=== PATIENT | female | born 1955 | race Caucasian/White ===

== ENCOUNTER 2017-11-13 13:51 | Emergency (ER) | payer BC ==
[2017-11-13 14:00] VITALS: BP 120/65; PULSE 88; RESP 16; TEMP 98.4; O2SAT 100
[2017-11-13] MEDS ORDERED: LEVO25TA4 PO (14:31)
[2017-11-13] MEDS ORDERED: CALC12502 (14:31)
[2017-11-13] MEDS ORDERED: RANI150C PO (14:31)
[2017-11-13] MEDS ORDERED: ERGO2000 PO (14:31)
[2017-11-13 14:32] VITALS: BP_SYST 101; BP_SYST 106; BP_SYST 94; BP_DIAS 48; BP_DIAS 50; BP_DIAS 59; RESP 16; O2SAT 100
[2017-11-13] MEDS ORDERED: SODIUM CHLOR 0.9% 1000 ML INJ 1,000 ML IV ONE (14:32)
--- NOTE | 2017-11-13 14:38 | PD ---
HPI Chief Complaint: Dizziness Time Seen by Provider: 14:26 Travel History International Travel<30 days: No Contact w/Intl Traveler<30days: No Traveled to known affect area: No History of Present Illness HPI Patient presents with concerns of left facial numbness. States she was out eating lunch when she was sitting and experienced some dizziness with an associated headache and left facial numbness. Denies any slurred speech denies any facial asymmetry. Denies any extremity weakness. Denies any cranial deficits. The dizziness is been occurring for several months. She is being worked up by her PCP for near syncope however today the headache and left facial numbness was different. Denies that this is the worst headache she's ever had. CT brain that was done one to 2 weeks ago was normal. PFSH Past Medical History Cerebrovascular Accident: Yes ?: Not Social History Tobacco Use: No Allergies-Medications (Allergen,Severity, Reaction): Coded Allergies: Penicillins (Verified Allergy, Unknown, 11/13/17) Sulfa (Sulfonamide Antibiotics) (Verified Allergy, Unknown, 11/13/17) naproxen (Verified Allergy, Unknown, 11/13/17) Reported Meds & Prescriptions Reported Meds & Active Scripts Active Reported Vitamin D2 (Ergocalciferol) 2,000 Unit Tab Unknown Dose PO DAILY Ranitidine (Ranitidine HCl) 150 Mg Cap Unknown Dose PO BID Calcium (Oyster Shell) 500 Mg Calcium (1250 Mg) Tab Levothyroxine (Levothyroxine Sodium) 25 Mcg Tab Unknown Dose PO DAILY Review of Systems General / Constitutional: No: Fever Eyes: No: Visual changes HENT: Positive: Headaches Cardiovascular: No: Chest Pain or Discomfort Respiratory: No: Shortness of Breath Gastrointestinal: No: Abdominal Pain Genitourinary: No: Dysuria Musculoskeletal: No: Pain Skin: No Rash Neurologic: Positive: Dizziness, No: Weakness Psychiatric: No: Depression Endocrine: No: Polydipsia Hematologic/Lymphatic: No: Easy Bruising Physical Exam Narrative GENERAL: Well-nourished, well-developed patient. SKIN: Focused skin assessment warm/dry. HEAD: Normocephalic. EYES: No scleral icterus. No injection or drainage. NECK: Supple, trachea midline. No JVD or lymphadenopathy. CARDIOVASCULAR: Regular rate and rhythm without murmurs, gallops, or rubs. RESPIRATORY: Breath sounds equal bilaterally. No accessory muscle use. GASTROINTESTINAL: Abdomen soft, non-tender, nondistended. MUSCULOSKELETAL: No cyanosis, or edema. BACK: Nontender without obvious deformity. No CVA tenderness. Data Data Last Documented VS Vital Signs Date Time Temp Pulse Resp B/P (MAP) Pulse Ox O2 Delivery O2 Flow Rate FiO2 11/13/17 15:40 72 18 103/52 (69) 99 Room Air 11/13/17 14:00 98.4 Orders Orders Complete Blood Count With Diff (11/13/17 14:32) Comprehensive Metabolic Panel (11/13/17 14:32) Ckmb (Isoenzyme) Profile (11/13/17 14:32) Troponin I (11/13/17 14:32) Urinalysis - C+S If Indicated (11/13/17 14:32) Ecg Monitoring (11/13/17 14:32) Iv Access Insert/Monitor (11/13/17 14:32) Oximetry (11/13/17 14:32) Sodium Chloride 0.9% Flush (Ns Flush) (11/13/17 14:45) Sodium Chlor 0.9% 1000 Ml Inj (Ns 1000 M (11/13/17 14:32) Orthostatic Vital Signs (11/13/17 14:32) Electrocardiogram (11/13/17 ) CKMB (11/13/17 14:40) CKMB% (11/13/17 14:40) Labs Laboratory Tests Test 11/13/17 14:40 White Blood Count 6.5 TH/MM3 Red Blood Count 4.30 MIL/MM3 Hemoglobin 13.1 GM/DL Hematocrit 39.3 % Mean Corpuscular Volume 91.5 FL Mean Corpuscular Hemoglobin 30.5 PG Mean Corpuscular Hemoglobin Concent 33.3 % Red Cell Distribution Width 13.3 % Platelet Count 205 TH/MM3 Mean Platelet Volume 10.5 FL Neutrophils (%) (Auto) 55.7 % Lymphocytes (%) (Auto) 33.3 % Monocytes (%) (Auto) 8.2 % Eosinophils (%) (Auto) 2.3 % Basophils (%) (Auto) 0.5 % Neutrophils # (Auto) 3.7 TH/MM3 Lymphocytes # (Auto) 2.2 TH/MM3 Monocytes # (Auto) 0.5 TH/MM3 Eosinophils # (Auto) 0.1 TH/MM3 Basophils # (Auto) 0.0 TH/MM3 CBC Comment DIFF FINAL Differential Comment Urine Collection Type CLEAN CATCH Urine Color YELLOW Urine Turbidity CLEAR Urine pH 5.0 Urine Specific [place] 1.019 Urine Protein NEG mg/dL Urine Glucose (UA) NEG mg/dL Urine Ketones NEG mg/dL Urine Occult Blood TRACE Urine Nitrite NEG Urine Bilirubin NEG Urine Leukocyte Esterase NEG Urine RBC 0-3 /hpf Urine WBC 0-2 /hpf Urine Squamous Epithelial Cells 0-5 /hpf Microscopic Urinalysis Comment CULT NOT INDICATED Urine Collection Time 14:40 Blood Urea Nitrogen 14 MG/DL Creatinine 0.89 MG/DL Random Glucose 86 MG/DL Total Protein 7.8 GM/DL Albumin 4.0 GM/DL Calcium Level 8.8 MG/DL Alkaline Phosphatase 101 U/L Aspartate Amino Transf (AST/SGOT) 20 U/L Alanine Aminotransferase (ALT/SGPT) 20 U/L Total Bilirubin 0.3 MG/DL Sodium Level 139 MEQ/L Potassium Level 3.6 MEQ/L Chloride Level 106 MEQ/L Carbon Dioxide Level 26.3 MEQ/L Anion Gap 7 MEQ/L Estimat Glomerular Filtration Rate 64 ML/MIN Total Creatine Kinase 127 U/L Creatine Kinase MB 0.7 NG/ML Troponin I LESS THAN 0.02 NG/ML MDM Medical Decision Making Medical Screen Exam Complete: Yes Emergency Medical Condition: Yes Differential Diagnosis ACS, trigeminal neuralgia, dentalgia, near syncope Narrative Course Assessment and plan discussed with patient, and daughter at bedside. EKG reveals sinus rhythm rate of 70. Patient received fluids with improvement. Headache has improved. Labs reviewed and within normal limits. Cardiac enzymes negative. Diagnosis Primary Impression: Cephalgia Qualified Codes: R51 - Headache Patient Instructions: General Instructions Additional Instructions: Encouraged rest fluids and Motrin or Tylenol. Follow-up with PCP. Return to emergency room with any onset of new symptoms. Med/Other Pt SpecificInfo: No Meds Exist/No RX given Disposition: 01 DISCHARGE HOME Condition: Good Saturnino Regan MD Nov 13, 2017 14:38
[2017-11-13] MEDS ORDERED: SODIUM CHLORIDE 0.9% FLUSH 10 ML FLUSH IVF PRN (14:45)
[2017-11-13 14:54] LABS: AUTOMATED NEUTROPHIL # 3.7 TH/MM3 (1.8-7.7); BASOPHIL % 0.5 % (0.0-2.0); EOSINOPHIL # 0.1 TH/MM3 (0-0.4); EOSINOPHIL % 2.3 % (0.0-4.0); HEMATOCRIT 39.3 % (35.0-46.0); HEMOGLOBIN 13.1 GM/DL (11.6-15.3); LYMPH % 33.3 % (9.0-44.0); LYMPHOCYTE # 2.2 TH/MM3 (1.0-4.8); MEAN CELL VOLUME 91.5 FL (80.0-100.0); MEAN CORPUSCULAR HEMOGLOBIN 30.5 PG (27.0-34.0); MEAN CORPUSCULAR HGB CONC 33.3 % (32.0-36.0); MEAN PLATELET VOLUME 10.5 FL (7.0-11.0); MONO % 8.2 % (0.0-8.0); MONOCYTE # 0.5 TH/MM3 (0-0.9); NEUT % 55.7 % (16.0-70.0); PLATELET COUNT 205 TH/MM3 (150-450); RED CELL DISTRIBUTION WIDTH 13.3 % (11.6-17.2); WHITE BLOOD COUNT 6.5 TH/MM3 (4.0-11.0)
[2017-11-13 14:56] LABS: BILIRUBIN, URINE NEG (NEG); BLOOD, URINE TRACE (NEG); GLUCOSE,URINE NEG (NEG); KETONE, URINE NEG (NEG); NITRITE,URINE NEG (NEG); URINE LEUKOCYTE ESTERASE NEG (NEG)
[2017-11-13 15:12] LABS: CHLORIDE 106 MEQ/L (98-107); SODIUM (NA) 139 MEQ/L (136-145)
[2017-11-13 15:13] LABS: RBC, URINE 0-3 /hpf (0-3); SQUAMOUS EPITHELIAL CELL URINE 0-5 /hpf (0-5); URINE COLOR YELLOW (YELLW/STRAW); WBC, URINE 0-2 /hpf (0-5)
[2017-11-13 15:15] LABS: CALCIUM 8.8 MG/DL (8.5-10.1)
[2017-11-13 15:16] LABS: BICARBONATE 26.3 MEQ/L (21.0-32.0); BLOOD UREA NITROGEN 14 MG/DL (7-18); GLUCOSE,RANDOM 86 MG/DL (74-106)
[2017-11-13 15:19] LABS: ALT (GPT) 20 U/L (10-53); AST (GOT) 20 U/L (15-37); CREATININE 0.89 MG/DL (0.50-1.00); GLOMERULAR FILTRATION RATE 64 ML/MIN (>89)
[2017-11-13 15:21] LABS: TOTAL BILIRUBIN ADULT 0.3 MG/DL (0.2-1.0); TOTAL PROTEIN 7.8 GM/DL (6.4-8.2)
[2017-11-13 15:22] LABS: ALKALINE PHOSPHATASE 101 U/L (45-117)
[2017-11-13 15:24] LABS: TROPONIN I LESS THAN 0.02 NG/ML (0.02-0.05)
[2017-11-13 15:40] VITALS: BP 103/52; PULSE 72; RESP 18; O2SAT 99
--- NOTE | 2017-11-13 21:14 | EKG ---
Date Performed: 11/13/2017 Time Performed: 14:46:11 PTAGE: 61 years EKG: Sinus rhythm LOW QRS VOLTAGE IN PRECORDIAL LEADS BORDERLINE ECG PREVIOUS TRACING : 08/27/2016 11.57 No significant change from previous tracing noted. DOCTOR: Jesus Cotton Interpretating Date/Time 11/13/2017 21:13:22
== END 2017-11-13 16:20 | disposition home or self-care (01) ==
LOC: PHED 13:51
DX: R51 Headache (principal); R94.31 Abnormal electrocardiogram [ECG] [EKG]; Z86.73 Personal history of transient ischemic attack (TIA), and cerebral infarction without residual deficits; Z88.2 Allergy status to sulfonamides; Z88.0 Allergy status to penicillin; Z79.899 Other long term (current) drug therapy
CPT/HCPCS: 80053; 81001; 82550; 82552; 84484; 85025; 93005; 96360; 99284; J7030